=== PATIENT | female | born 1980 | race Caucasian/White ===

== ENCOUNTER 2018-04-15 14:20 | Observation (INO) | payer BC ==
[2018-04-15] MEDS ORDERED: Dicyclomine 10 MG Cap PO ONE (15:53)
[2018-04-15] MEDS ORDERED: Ondansetron 4 MG/2 ML SDV IV ONE (15:53)
[2018-04-15] MEDS ORDERED: Iopamidol 612 MG/ML 75 ML Bottle IVPUSH ONE (15:54)
[2018-04-15 15:59] LABS: ANION GAP 16.7; CHLORIDE,CL 106 mmol/L (101-111); SODIUM,NA 136 mmol/L (135-145)
--- NOTE | 2018-04-15 16:41 | EDM.PDOC ---
ED HPI GENERAL MEDICAL PROBLEM - General Chief Complaint: Abdominal Pain Stated Complaint: BAD STOMACH PAINS Time Seen by Provider: 04/15/18 15:46 Source of Information: Reports: Patient, RN, RN Notes Reviewed History Limitations: Reports: No Limitations - History of Present Illness INITIAL COMMENTS - FREE TEXT/NARRATIVE: Patient presents to ER with complaint of abdominal pain which began at 06:00. He has spasms that come and go to the right shoulder blade, right upper quadrant and into his back he has piercing pain. He has had vomiting, diarrhea, hot flash and sweating. No chest pain, shortness of breath and fever. Onset: Today Duration: Getting Worse Location: Reports: Abdomen Quality: Reports: Ache Severity: Moderate Improves with: Reports: None Worsens with: Reports: None Associated Symptoms: Reports: No Other Symptoms Right Abdomen Pain Score (Numeric/FACES): 3 - Related Data Allergies Allergy/AdvReac Type Severity Reaction Status Date / Time No Known Allergies Allergy Verified 04/15/18 14:42 Home Meds: Home Meds FLUoxetine [PROzac] 20 mg PO DAILY 03/15/13 [History] Past Medical History HEENT History: Reports: Impaired Vision Other HEENT History: wears glasses Cardiovascular History: Reports: None Respiratory History: Reports: None Gastrointestinal History: Reports: Other (See Below) Other Gastrointestinal History: belly problems whole life, cant figure out, states has had ulcers Genitourinary History: Reports: None 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 Musculoskeletal History: Reports: None Neurological History: Reports: None Psychiatric History: Reports: Anxiety Endocrine/Metabolic History: Reports: None Hematologic History: Reports: Anemia Immunologic History: Reports: None Oncologic (Cancer) History: Reports: None Dermatologic History: Reports: None - Infectious Disease History Infectious Disease History: Reports: Chicken Pox - Past Surgical History Head Surgeries/Procedures: Reports: None GI Surgical History: Reports: Colonoscopy Female Surgical History: Reports: Breast Reduction Neurological Surgical History: Reports: Discectomy, Laminectomy Musculoskeletal Surgical History: Reports: Other (See Below) Other Musculoskeletal Surgeries/Procedures:: disk surgurys Social & Family History - Tobacco Use Smoking Status *Q: Never Smoker Second Hand Smoke Exposure: No - Caffeine Use Caffeine Use: Reports: None - Recreational Drug Use Recreational Drug Use: No ED ROS GENERAL - Review of Systems Review Of Systems: ROS reveals no pertinent complaints other than HPI. ED EXAM, GI/ABD - Physical Exam Exam: See Below Exam Limited By: No Limitations General Appearance: Anxious, Moderate Distress Eyes: Bilateral: Normal Appearance Ears: Normal External Exam, Normal Canal, Hearing Grossly Normal, Normal TMs Nose: Normal Inspection, Normal Mucosa, No Blood Throat/Mouth: Normal Inspection, Normal Lips, Normal Teeth, Normal Gums, Normal Oropharynx, Normal Voice, No Airway Compromise Head: Atraumatic, Normocephalic Neck: Normal Inspection, Supple, Non-Tender, Full Range of Motion Respiratory/Chest: No Respiratory Distress, Lungs Clear, Normal Breath Sounds, No Accessory Muscle Use, Chest Non-Tender Cardiovascular: Normal Peripheral Pulses, Regular Rate, Rhythm, No Edema, No Gallop, No JVD, No Murmur, No Rub GI/Abdominal Exam: Tender, Other (generally hyperactive) (Female) Exam: Deferred Rectal (Female) Exam: Deferred Back Exam: Normal Inspection, Full Range of Motion, NT Extremities: Normal Inspection, Normal Range of Motion, Non-Tender, Normal Capillary Refill, No Pedal Edema Neurological: Alert, Oriented, CN II-XII Intact, Normal Cognition, Normal Gait, Normal Reflexes, No Motor/Sensory Deficits Psychiatric: Anxious, Tearful Skin Exam: Warm, Dry, Intact, Normal Color, No Rash Lymphatic: No Adenopathy Course - Vital Signs Last Recorded V/S: Last Vital Signs Temp 99.9 F 04/15/18 17:22 Pulse 74 04/15/18 17:22 Resp 16 04/15/18 17:22 BP 96/53 L 04/15/18 17:22 Pulse Ox 100 04/15/18 17:22 - Orders/Labs/Meds Orders: Active Orders 24 hr Category Date Time Status Sodium Chloride 0.9% [Normal Saline] 1,000 ml Med 04/15/18 17:16 Active IV .BOLUS Medication Orders Sodium Chloride (Normal Saline) 1,000 mls @ 999 mls/hr IV .BOLUS ONE Stop: 04/15/18 18:16 Last Admin: 04/15/18 17:21 Dose: 999 mls/hr Labs: Laboratory Tests 04/15/18 04/15/18 04/15/18 Range/Units 15:32 15:32 15:41 WBC 12.0 H (5.0-10.0) 10^3/uL RBC 4.88 (4.2-5.4) 10^6/uL Hgb 12.8 (12.0-16.0) g/dL Hct 38.8 (37.0-47.0) % MCV 79.5 L (80-100) fL MCH 26.2 L (27.0-34.0) pg MCHC 33.0 (33.0-35.0) g/dL Plt Count 270 (150-450) 10^3/uL Neut % (Auto) 88.9 H (42.2-75.2) % Lymph % (Auto) 5.4 L (20.5-50.1) % Frio % (Auto) 5.5 (2-8) % Eos % (Auto) 0.1 L (1.0-3.0) % Baso % (Auto) 0.1 (0.0-1.0) % Sodium 136 (135-145) mmol/L Potassium 3.7 (3.6-5.0) mmol/L Chloride 106 (101-111) mmol/L Carbon Dioxide 17.0 L (21.0-31.0) mmol/L Anion Gap 16.7 BUN 11 (7-18) mg/dL Creatinine 0.8 (0.6-1.3) mg/dL Est Cr Clr Drug Dosing 97.13 mL/min Estimated GFR (MDRD) > 60 BUN/Creatinine Ratio 13.75 Glucose 94 (74-105) mg/dL Calcium 9.3 (8.4-10.2) mg/dl Total Bilirubin 1.4 H (0.2-1.0) mg/dL AST 29 (10-42) IU/L ALT 13 (10-60) IU/L Alkaline Phosphatase 79 (42-121) IU/L Total Protein 7.7 (6.7-8.2) g/dl Albumin 4.4 (3.2-5.5) g/dl Globulin 3.3 Albumin/Globulin Ratio 1.33 Amylase 46 (28-100) U/L Lipase 31 (22-51) U/L Urine Color Yellow (YELLOW) Urine Appearance Slightly cloudy (CLEAR) Urine pH >= 9.0 (5.0-9.0) Ur Specific [place] 1.020 (1.005-1.030) Urine Protein 100 H (NEGATIVE) Urine Glucose (UA) Negative (NEGATIVE) Urine Ketones 80 H (NEGATIVE) Urine Occult Blood Trace-intact H (NEGATIVE) Urine Nitrite Negative (NEGATIVE) Urine Bilirubin Negative (NEGATIVE) Urine Urobilinogen 1.0 (0.2-1.0) mg/dL Ur Leukocyte Esterase Negative (NEGATIVE) Urine RBC 5-10 H /HPF Urine WBC 0-5 (0-5/HPF) /HPF Ur Epithelial Cells Moderate H /HPF Urine Bacteria Rare (0-FEW/HPF) /HPF Urine Mucus Many H /LPF Meds: Medications Generic Name Dose Route Start Last Admin Trade Name Freq PRN Reason Stop Dose Admin Sodium Chloride 1,000 mls @ 999 mls/hr 04/15/18 17:16 04/15/18 17:21 Normal Saline IV 04/15/18 18:16 999 mls/hr .BOLUS ONE Administration Discontinued Medications Generic Name Dose Route Start Last Admin Trade Name Freq PRN Reason Stop Dose Admin Dicyclomine HCl 20 mg 04/15/18 15:53 04/15/18 16:04 Bentyl PO 04/15/18 15:54 20 mg ONETIME ONE Administration Iopamidol 75 ml 04/15/18 15:54 04/15/18 16:15 Isovue-300 (61%) IVPUSH 04/15/18 15:55 75 ml ONETIME ONE Administration Ondansetron HCl 4 mg 04/15/18 15:53 04/15/18 16:02 Zofran IV 04/15/18 15:54 4 mg ONETIME ONE Administration - Radiology Interpretation Free Text/Narrative:: Abdominal/Pelvis CT with contrast: FINDINGS: Lower thorax: The visualized portions of the lung bases are normal. The heart is not enlarged. ABDOMEN: Liver: The liver is normal. Gallbladder and bile ducts: Normal. No calcified stones. No ductal dilation. Pancreas: The pancreas is normal. Spleen: The spleen is normal. Adrenals: The adrenal glands are normal. Kidneys and ureters: The kidneys are normal. Stomach and bowel: A large amount of fluid is noted within the colon with small air-fluid levels consistent with ileus. Appendix: The appendix measures upper limits of normal at 7 mm. No surrounding periappendiceal fat stranding. PELVIS: Bladder: The bladder is normal. Reproductive: The uterus is normal. ABDOMEN and PELVIS: Intraperitoneal space: Normal. No free air. No significant fluid collection. Bones/joints: No acute fracture. No dislocation. Soft tissues: Unremarkable. Vasculature: Normal. No abdominal aortic aneurysm. Lymph nodes: Normal. No enlarged lymph nodes. IMPRESSION: 1. A large amount of fluid is noted within the colon with small air-fluid levels consistent with ileus. 2. The appendix measures upper limits of normal at 7 mm. No surrounding periappendiceal fat stranding. If symptoms persist, recommend followup study following IV and oral contrast. Thank you for allowing us to participate in the care of your patient. Dictated and Authenticated by: Brayan Blum DO 04/15/2018 5:07 PM Central Time ([place] & [place]) See rad report - Re-Assessments/Exams Free Text/Narrative Re-Assessment/Exam: 04/15/18 18:10 Discussed the patient case with Dr. Blair who agreed to accept the patient for admission under observation. Departure - Departure Time of Disposition: 18:11 Disposition: Refer to Observation Condition: Fair Clinical Impression: Ileus Diarrhea Qualifiers: Diarrhea type: unspecified type Qualified Code(s): R19.7 - Diarrhea, unspecified Abdominal pain Qualifiers: Abdominal location: generalized Qualified Code(s): R10.84 - Generalized abdominal pain - Discharge Information *PRESCRIPTION DRUG MONITORING PROGRAM REVIEWED*: No *COPY OF PRESCRIPTION DRUG MONITORING REPORT IN PATIENT MAURY: No Forms: ED Department Discharge - My Orders Last 24 Hours: My Active Orders 04/15/18 17:16 Sodium Chloride 0.9% [Normal Saline] 1,000 ml IV .BOLUS - Assessment/Plan Last 24 Hours: My Active Orders 04/15/18 17:16 Sodium Chloride 0.9% [Normal Saline] 1,000 ml IV .BOLUS
[2018-04-15] MEDS ORDERED: Sodium Chloride 0.9% 1,000 ML IV ONE (17:16)
[2018-04-15] MEDS ORDERED: Docusate Sodium 100 MG Cap PO PRN (19:28)
[2018-04-15] MEDS ORDERED: Promethazine 25 MG/ML SDV IM PRN (19:28)
[2018-04-15] MEDS ORDERED: Bisacodyl 5 MG Tab PO PRN (19:28)
[2018-04-15] MEDS ORDERED: Ibuprofen 600 MG Tab PO PRN (19:28)
[2018-04-15] MEDS ORDERED: Polyethylene Glycol 3350 Powder 17 GM Packet PO PRN (19:28)
[2018-04-15] MEDS ORDERED: Magnesium Hydroxide 400 MG/5 ML Susp 30 ML Cup PO PRN (19:28)
[2018-04-15] MEDS ORDERED: Acetaminophen 325 MG Tab PO PRN (19:28)
[2018-04-15] MEDS ORDERED: Ondansetron 4 MG/2 ML SDV IVPUSH PRN (19:28)
[2018-04-15] MEDS ORDERED: Promethazine 25 MG Tab PO PRN (19:28)
[2018-04-15] MEDS ORDERED: Ondansetron 4 MG Tab.DIS PO PRN (19:28)
--- NOTE | 2018-04-15 19:35 | PCM.HP ---
H&P History of Present Illness - General Date of Service: 04/15/18 Admit Problem/Dx: Admission Diagnosis/Problem Admission Diagnosis/Problem Ileus Source of Information: Patient, Provider History Limitations: Reports: No Limitations - History of Present Illness Initial Comments - Free Text/Narative: Ms. Smalls is a 38 y.o female with history of herniated discs who presented to the ED with complaints of abdominal pain, nausea/vomiting and diarrhea and was found to have ileus on CT abdomen and pelvis. She reports that she woke up this morning around 6 a.m with abdominal pain that started in the right upper quadrant below the ribs. she reports pain would come in waves, 8/10, lasts about 30 seconds, radiate to the right shoulder, right upper abdomen, and her back, and subside spontaneously. She reports that she was in the bathroom for diarrhea "about 40x." She denies hematochezia or melena. No abdominal trauma. Reports she had dry heaving and hyperventilation. Had an episode of NBNB emesis. She denies prior episodes. She reports chills but did not check her temperature. Denies diaphoresis. She denies chest pain, shortness of breath, dysuria, hematuria, or any other symptoms. Right Abdomen Pain Score (Numeric/FACES): 4 Left Posterior Hip Pain Score (Numeric/FACES): 4 - Related Data Allergies/Adverse Reactions: Allergies Allergy/AdvReac Type Severity Reaction Status Date / Time No Known Allergies Allergy Verified 04/15/18 19:12 Home Medications: Home Meds FLUoxetine [PROzac] 20 mg PO DAILY 03/15/13 [History] Past Medical History HEENT History: Reports: Impaired Vision, Other (See Below) Other HEENT History: wears glasses, strabismus Cardiovascular History: Reports: None Respiratory History: Reports: None Gastrointestinal History: Reports: Other (See Below) Other Gastrointestinal History: belly problems whole life, cant figure out, states has had ulcers Genitourinary History: Reports: None 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 Musculoskeletal History: Reports: None Neurological History: Reports: None Psychiatric History: Reports: Anxiety Endocrine/Metabolic History: Reports: None Hematologic History: Reports: Anemia Immunologic History: Reports: None Oncologic (Cancer) History: Reports: None Dermatologic History: Reports: None - Infectious Disease History Infectious Disease History: Reports: Chicken Pox - Past Surgical History Head Surgeries/Procedures: Reports: None HEENT Surgical History: Reports: Eye Surgery GI Surgical History: Reports: Colonoscopy Female Surgical History: Reports: Breast Reduction Neurological Surgical History: Reports: Discectomy, Laminectomy Musculoskeletal Surgical History: Reports: Other (See Below) Other Musculoskeletal Surgeries/Procedures:: disk surguries Social & Family History - Family History Family Medical History: Noncontributory - Tobacco Use Smoking Status *Q: Never Smoker Second Hand Smoke Exposure: No - Caffeine Use Caffeine Use: Reports: Other Other Caffeine Use: Plexus - Recreational Drug Use Recreational Drug Use: No H&P Review of Systems - Review of Systems: Review Of Systems: ROS reveals no pertinent complaints other than HPI. Exam - Exam Exam: See Below - Vital Signs Vital Signs: Last Vital Signs Temp 99.0 F 04/15/18 19:26 Pulse 84 04/15/18 19:26 Resp 16 04/15/18 19:26 BP 89/37 L 04/15/18 19:26 Pulse Ox 98 04/15/18 19:26 Weight: 160 lb - Exam Physical Exam Comments:: General: Alert and oriented to place, time and person Head: atraumatic and normocephalic. Eyes: PERRLA, EOMI, anicteric, Ear, Nose and Throat: No gross abnormality found Neck: Supple Respiratory/Chest: CTAB, no wheezes, crackles, rales, or rhonchi; Good air entry bilaterally. No increased work of breathing CVS: RRR, no murmur, rub, or gallop, peripheral pulses palpable. Gastrointestinal/Abd: +RUQ tenderness with positive Argueta's sign. Soft, non- distended, non-tender. Normal bowel sounds. No organomegaly. Skin: No acute rashes noted. Neuro: Grossly non-focal. No cranial nerve abnormality. Moves all extremities. Psych: Alert and oriented to place time and person. No hallucinations or delusions noted. Musculoskeletal: No abnormality noted. Ext: No edema, no ulcers, no tenderness, no size differences, - Patient Data Lab Results Last 24 hrs: Laboratory Results - last 24 hr 04/15/18 04/15/18 04/15/18 Range/Units 15:32 15:32 15:41 WBC 12.0 H (5.0-10.0) 10^3/uL RBC 4.88 (4.2-5.4) 10^6/uL Hgb 12.8 (12.0-16.0) g/dL Hct 38.8 (37.0-47.0) % MCV 79.5 L (80-100) fL MCH 26.2 L (27.0-34.0) pg MCHC 33.0 (33.0-35.0) g/dL Plt Count 270 (150-450) 10^3/uL Neut % (Auto) 88.9 H (42.2-75.2) % Lymph % (Auto) 5.4 L (20.5-50.1) % Harmon % (Auto) 5.5 (2-8) % Eos % (Auto) 0.1 L (1.0-3.0) % Baso % (Auto) 0.1 (0.0-1.0) % Sodium 136 (135-145) mmol/L Potassium 3.7 (3.6-5.0) mmol/L Chloride 106 (101-111) mmol/L Carbon Dioxide 17.0 L (21.0-31.0) mmol/L Anion Gap 16.7 BUN 11 (7-18) mg/dL Creatinine 0.8 (0.6-1.3) mg/dL Est Cr Clr Drug Dosing 97.13 mL/min Estimated GFR (MDRD) > 60 BUN/Creatinine Ratio 13.75 Glucose 94 (74-105) mg/dL Calcium 9.3 (8.4-10.2) mg/dl Total Bilirubin 1.4 H (0.2-1.0) mg/dL AST 29 (10-42) IU/L ALT 13 (10-60) IU/L Alkaline Phosphatase 79 (42-121) IU/L Total Protein 7.7 (6.7-8.2) g/dl Albumin 4.4 (3.2-5.5) g/dl Globulin 3.3 Albumin/Globulin Ratio 1.33 Amylase 46 (28-100) U/L Lipase 31 (22-51) U/L Urine Color Yellow (YELLOW) Urine Appearance Slightly cloudy (CLEAR) Urine pH >= 9.0 (5.0-9.0) Ur Specific [place] 1.020 (1.005-1.030) Urine Protein 100 H (NEGATIVE) Urine Glucose (UA) Negative (NEGATIVE) Urine Ketones 80 H (NEGATIVE) Urine Occult Blood Trace-intact H (NEGATIVE) Urine Nitrite Negative (NEGATIVE) Urine Bilirubin Negative (NEGATIVE) Urine Urobilinogen 1.0 (0.2-1.0) mg/dL Ur Leukocyte Esterase Negative (NEGATIVE) Urine RBC 5-10 H /HPF Urine WBC 0-5 (0-5/HPF) /HPF Ur Epithelial Cells Moderate H /HPF Urine Bacteria Rare (0-FEW/HPF) /HPF Urine Mucus Many H /LPF Result Diagrams: 04/15/18 15:32 04/15/18 15:32 - Problem List (1) Anxiety SNOMED Code(s): 91442753 ICD Code: F41.9 - ANXIETY DISORDER, UNSPECIFIED Status: Acute Current Visit: Yes (2) Abdominal pain SNOMED Code(s): 18181096 ICD Code: R10.9 - UNSPECIFIED ABDOMINAL PAIN Status: Acute Current Visit : Yes Qualifiers: Abdominal location: right upper quadrant Qualified Code(s): R10.11 - Right upper quadrant pain (3) Diarrhea SNOMED Code(s): 48793964 ICD Code: R19.7 - DIARRHEA, UNSPECIFIED Status: Acute Current Visit: No Qualifiers: Diarrhea type: unspecified type Qualified Code(s): R19.7 - Diarrhea, unspecified (4) Ileus SNOMED Code(s): 226745796 ICD Code: K56.7 - ILEUS, UNSPECIFIED Status: Acute Priority: High Current Visit: Yes Problem List Initiated/Reviewed/Updated: Yes Orders Last 24hrs: Active Orders 24 hr Category Date Time Status Patient Status [ADT] Routine ADT 04/15/18 19:28 Ordered Height and Weight [RC] UPON Care 04/15/18 19:28 Ordered Intake and Output [RC] QSHIFT Care 04/15/18 19:29 Ordered Oxygen Therapy [RC] PRN Care 04/15/18 19:28 Ordered Up ad Hilary [RC] ASDIRECTED Care 04/15/18 19:28 Ordered VTE/DVT Education [RC] PER UNIT ROUTINE Care 04/15/18 19:28 Ordered Vital Signs [RC] Q4H Care 04/15/18 19:28 Ordered Nothing per Oral Now Diet [DIET] Diet 04/15/18 Dinner Ordered CBC W/O DIFF,HEMOGRAM [HEME] AM Lab 04/16/18 05:11 Ordered COMPREHENSIVE METABOLIC PN,CMP [CHEM] AM Lab 04/16/18 05:11 Ordered Acetaminophen [Tylenol] Med 04/15/18 19:28 Ordered 650 mg PO Q4H PRN Bisacodyl [Dulcolax] Med 04/15/18 19:28 Ordered 5 mg PO DAILY PRN Docusate Sodium [Colace] Med 04/15/18 19:28 Ordered 100 mg PO BID PRN Docusate Sodium/Sennosides [Senna Plus] Med 04/15/18 19:28 Ordered 1 tab PO BEDTIME PRN Enoxaparin [Lovenox] Med 04/16/18 09:00 Ordered 40 mg SUBCUT DAILY Ibuprofen [Motrin] Med 04/15/18 19:28 Ordered 600 mg PO Q6H PRN Lactated Ringers @ 125 MLS/HR(1000ml) Med 04/15/18 19:30 Ordered Lactated Ringers [Ringers, Lactated] 1,000 ml IV ASDIRECTED Magnesium Hydroxide [Milk of Magnesia] Med 04/15/18 19:28 Ordered 30 ml PO Q12H PRN Ondansetron [Zofran ODT] Med 04/15/18 19:28 Ordered 4 mg PO Q6H PRN Ondansetron [Zofran] Med 04/15/18 19:28 Ordered 4 mg IVPUSH Q6H PRN Polyethylene Glycol 3350 [MiraLAX] Med 04/15/18 19:28 Ordered 17 gm PO DAILY PRN Promethazine [Phenergan] Med 04/15/18 19:28 Ordered 25 mg PO Q6H PRN Promethazine [Phenergan] Med 04/15/18 19:28 Ordered 6.25 mg IM Q6H PRN Nasogastric Orogastric Tube Insertion [OM.PC] Urgent Oth 04/15/18 19:29 Ordered Resuscitation Status Routine Resus Stat 04/15/18 19:28 Ordered Assessment/Plan Comment:: #Ileus + abdominal spasms: patient with CT findings of ileus in the context of abdominal pain and diarrhea with one episode of emesis. - NPO - IVF - NGT placement if nausea and/or emesis recurs. - Monitor labs. - Pain management - Serial abdominal exams - Encouraged ambulation - Ice chips, small quantities please. - Bentyl, if abdominal spasms recurs. #RUQ pain:+RUQ tenderness with positive Argueta's sign. CT scan does not show any gall stones or ductal dilatation. However, symptoms, physical exam findings are concerning for probable cholycystitis. Only thing does not fit is her relatively normal LFTs. - I will obtain RUQ US if RUQ tenderness persists in the morning. # Anxiety: - Continue prozac. DVT PPx: Lovenox Full Code
[2018-04-15] MEDS: Lactated Ringers 1,000 ML IV SCH (20:16)
[2018-04-16] MEDS: Lactated Ringers 1,000 ML IV SCH ×3 (04:24→20:41)
[2018-04-16 06:37] LABS: ANION GAP 9.4; CHLORIDE,CL 109 mmol/L (101-111); SODIUM,NA 138 mmol/L (135-145)
[2018-04-16] MEDS: Enoxaparin 40 MG/0.4 ML Syringe SUBCUT SCH (08:29)
[2018-04-16] MEDS ORDERED: Potassium Chloride 10 MEQ Tab.ER PO ONE (08:59)
[2018-04-16] MEDS ORDERED: Cyclobenzaprine 10 MG Tab PO ONE (10:14)
--- NOTE | 2018-04-16 10:18 | PCM.PN ---
- General Info Date of Service: 04/16/18 Admission Dx/Problem (Free Text): Admission Diagnosis/Problem Admission Diagnosis/Problem Ileus Subjective Update: Reports that she had a fever last night. Feeling back pain. Reports that she has been having diarrhea since she came to the hospital. Denies abdominal pain. No recurrence of nausea/vomiting. She denies fevers, chills, chest pain, shortness of breath or any other symptoms. - Review of Systems Systems Review Comment:: As per subjective update above. - Patient Data Vitals - Most Recent: Last Vital Signs Temp 98.3 F 04/16/18 08:00 Pulse 77 04/16/18 08:00 Resp 16 04/16/18 08:00 BP 98/58 L 04/16/18 08:00 Pulse Ox 100 04/16/18 08:00 Weight - Most Recent: 160 lb I&O - Last 24 Hours: Intake & Output 04/15/18 04/16/18 04/16/18 22:59 06:59 14:59 Intake Total 993 Balance 993 Lab Results Last 24 Hours: Laboratory Results - last 24 hr 04/15/18 04/15/18 04/15/18 Range/Units 15:32 15:32 15:41 WBC 12.0 H (5.0-10.0) 10^3/uL RBC 4.88 (4.2-5.4) 10^6/uL Hgb 12.8 (12.0-16.0) g/dL Hct 38.8 (37.0-47.0) % MCV 79.5 L (80-100) fL MCH 26.2 L (27.0-34.0) pg MCHC 33.0 (33.0-35.0) g/dL Plt Count 270 (150-450) 10^3/uL Neut % (Auto) 88.9 H (42.2-75.2) % Lymph % (Auto) 5.4 L (20.5-50.1) % Bay % (Auto) 5.5 (2-8) % Eos % (Auto) 0.1 L (1.0-3.0) % Baso % (Auto) 0.1 (0.0-1.0) % Sodium 136 (135-145) mmol/L Potassium 3.7 (3.6-5.0) mmol/L Chloride 106 (101-111) mmol/L Carbon Dioxide 17.0 L (21.0-31.0) mmol/L Anion Gap 16.7 BUN 11 (7-18) mg/dL Creatinine 0.8 (0.6-1.3) mg/dL Est Cr Clr Drug Dosing 97.13 mL/min Estimated GFR (MDRD) > 60 BUN/Creatinine Ratio 13.75 Glucose 94 (74-105) mg/dL Calcium 9.3 (8.4-10.2) mg/dl Total Bilirubin 1.4 H (0.2-1.0) mg/dL AST 29 (10-42) IU/L ALT 13 (10-60) IU/L Alkaline Phosphatase 79 (42-121) IU/L Total Protein 7.7 (6.7-8.2) g/dl Albumin 4.4 (3.2-5.5) g/dl Globulin 3.3 Albumin/Globulin Ratio 1.33 Amylase 46 (28-100) U/L Lipase 31 (22-51) U/L Urine Color Yellow (YELLOW) Urine Appearance Slightly cloudy (CLEAR) Urine pH >= 9.0 (5.0-9.0) Ur Specific [place] 1.020 (1.005-1.030) Urine Protein 100 H (NEGATIVE) Urine Glucose (UA) Negative (NEGATIVE) Urine Ketones 80 H (NEGATIVE) Urine Occult Blood Trace-intact H (NEGATIVE) Urine Nitrite Negative (NEGATIVE) Urine Bilirubin Negative (NEGATIVE) Urine Urobilinogen 1.0 (0.2-1.0) mg/dL Ur Leukocyte Esterase Negative (NEGATIVE) Urine RBC 5-10 H /HPF Urine WBC 0-5 (0-5/HPF) /HPF Ur Epithelial Cells Moderate H /HPF Urine Bacteria Rare (0-FEW/HPF) /HPF Urine Mucus Many H /LPF 04/16/18 04/16/18 Range/Units 06:05 06:05 WBC 5.2 (5.0-10.0) 10^3/uL RBC 3.94 L (4.2-5.4) 10^6/uL Hgb 10.2 L D (12.0-16.0) g/dL Hct 32.8 L (37.0-47.0) % MCV 83.2 D (80-100) fL MCH 25.9 L (27.0-34.0) pg MCHC 31.1 L (33.0-35.0) g/dL Plt Count 199 (150-450) 10^3/uL Neut % (Auto) (42.2-75.2) % Lymph % (Auto) (20.5-50.1) % [place] % (Auto) (2-8) % Eos % (Auto) (1.0-3.0) % Baso % (Auto) (0.0-1.0) % Sodium 138 (135-145) mmol/L Potassium 3.4 L (3.6-5.0) mmol/L Chloride 109 (101-111) mmol/L Carbon Dioxide 23.0 (21.0-31.0) mmol/L Anion Gap 9.4 BUN 10 (7-18) mg/dL Creatinine 0.8 (0.6-1.3) mg/dL Est Cr Clr Drug Dosing 97.13 mL/min Estimated GFR (MDRD) > 60 BUN/Creatinine Ratio 12.50 Glucose 95 (74-105) mg/dL Calcium 8.1 L (8.4-10.2) mg/dl Total Bilirubin 0.8 (0.2-1.0) mg/dL AST 16 (10-42) IU/L ALT 10 (10-60) IU/L Alkaline Phosphatase 61 (42-121) IU/L Total Protein 5.8 L (6.7-8.2) g/dl Albumin 3.2 (3.2-5.5) g/dl Globulin 2.6 Albumin/Globulin Ratio 1.23 Amylase (28-100) U/L Lipase (22-51) U/L Urine Color (YELLOW) Urine Appearance (CLEAR) Urine pH (5.0-9.0) Ur Specific [place] (1.005-1.030) Urine Protein (NEGATIVE) Urine Glucose (UA) (NEGATIVE) Urine Ketones (NEGATIVE) Urine Occult Blood (NEGATIVE) Urine Nitrite (NEGATIVE) Urine Bilirubin (NEGATIVE) Urine Urobilinogen (0.2-1.0) mg/dL Ur Leukocyte Esterase (NEGATIVE) Urine RBC /HPF Urine WBC (0-5/HPF) /HPF Ur Epithelial Cells /HPF Urine Bacteria (0-FEW/HPF) /HPF Urine Mucus /LPF Med Orders - Current: Current Medications Acetaminophen (Tylenol) 650 mg PO Q4H PRN PRN Reason: Pain Bisacodyl (Dulcolax) 5 mg PO DAILY PRN PRN Reason: Constipation Cyclobenzaprine HCl (Flexeril) 10 mg PO ONETIME ONE Stop: 04/16/18 10:15 Dicyclomine HCl (Bentyl) 10 mg PO QIDACANDBED PRN PRN Reason: Abdominal Pain Docusate Sodium (Colace) 100 mg PO BID PRN PRN Reason: Constipation Enoxaparin Sodium (Lovenox) 40 mg SUBCUT DAILY [facility] Last Admin: 04/16/18 08:29 Dose: 40 mg Lactated Ringer's (Ringers, Lactated) 1,000 mls @ 125 mls/hr IV ASDIRECTED [facility] Last Admin: 04/16/18 04:24 Dose: 125 mls/hr Ibuprofen (Motrin) 600 mg PO Q6H PRN PRN Reason: Pain Last Admin: 04/15/18 20:16 Dose: 600 mg Magnesium Hydroxide (Milk Of Magnesia) 30 ml PO Q12H PRN PRN Reason: Constipation Ondansetron HCl (Zofran Odt) 4 mg PO Q6H PRN PRN Reason: nausea, able to take PO Ondansetron HCl (Zofran) 4 mg IVPUSH Q6H PRN PRN Reason: Nausea/Vomiting Polyethylene Glycol (Miralax) 17 gm PO DAILY PRN PRN Reason: Constipation Promethazine HCl (Phenergan) 25 mg PO Q6H PRN PRN Reason: nausea, able to take PO Promethazine HCl (Phenergan) 6.25 mg IM Q6H PRN PRN Reason: Nausea/Vomiting Senna/Docusate Sodium (Senna Plus) 1 tab PO BEDTIME PRN PRN Reason: Constipation Discontinued Medications Dicyclomine HCl (Bentyl) 20 mg PO ONETIME ONE Stop: 04/15/18 15:54 Last Admin: 04/15/18 16:04 Dose: 20 mg Sodium Chloride (Normal Saline) 1,000 mls @ 999 mls/hr IV .BOLUS ONE Stop: 04/15/18 18:16 Last Admin: 04/15/18 17:21 Dose: 999 mls/hr Iopamidol (Isovue-300 (61%)) 75 ml IVPUSH ONETIME ONE Stop: 04/15/18 15:55 Last Admin: 04/15/18 16:15 Dose: 75 ml Ondansetron HCl (Zofran) 4 mg IV ONETIME ONE Stop: 04/15/18 15:54 Last Admin: 04/15/18 16:02 Dose: 4 mg Potassium Chloride (Klor-Con 10) 40 meq PO ONETIME ONE Stop: 04/16/18 09:00 - Exam General: Alert, Oriented HEENT: Pupils Equal, Pupils Reactive, Mucous Membr. Moist/[place] Neck: Supple Lungs: Clear to Auscultation, Normal Respiratory Effort Cardiovascular: Regular Rate, Regular Rhythm GI/Abdominal Exam: Normal Bowel Sounds, Soft, Non-Tender, No Distention Back Exam: Normal Inspection, Paraspinal Tenderness Extremities: Normal Inspection, Normal Range of Motion, Non-Tender, No Pedal Edema Peripheral Pulses: 2+: Radial (L), Radial (R), Dorsalis Pedis (L), Dorsalis Pedis (R) Skin: Warm, Dry, Intact Neurological: No New Focal Deficit Psy/Mental Status: Alert, Normal Affect, Normal Mood - Problem List & Annotations (1) Anxiety SNOMED Code(s): 25090133 Code(s): F41.9 - ANXIETY DISORDER, UNSPECIFIED Status: Acute Current Visit: Yes (2) Abdominal pain SNOMED Code(s): 93240262 Code(s): R10.9 - UNSPECIFIED ABDOMINAL PAIN Status: Acute Current Visit: Yes Qualifiers: Abdominal location: right upper quadrant Qualified Code(s): R10.11 - Right upper quadrant pain (3) Diarrhea SNOMED Code(s): 16183029 Code(s): R19.7 - DIARRHEA, UNSPECIFIED Status: Acute Current Visit: No Qualifiers: Diarrhea type: unspecified type Qualified Code(s): R19.7 - Diarrhea, unspecified (4) Ileus SNOMED Code(s): 761625953 Code(s): K56.7 - ILEUS, UNSPECIFIED Status: Acute Priority: High Current Visit: Yes - Problem List Review Problem List Initiated/Reviewed/Updated: Yes - My Orders Last 24 Hours: My Active Orders 04/15/18 19:28 Patient Status [ADT] Routine Oxygen Therapy [RC] PRN Up ad Hilary [RC] ASDIRECTED VTE/DVT Education [RC] PER UNIT ROUTINE Vital Signs [RC] 04,08,12,16,20 Acetaminophen [Tylenol] 650 mg PO Q4H PRN Bisacodyl [Dulcolax] 5 mg PO DAILY PRN Docusate Sodium [Colace] 100 mg PO BID PRN Docusate Sodium/Sennosides [Senna Plus] 1 tab PO BEDTIME PRN Ibuprofen [Motrin] 600 mg PO Q6H PRN Magnesium Hydroxide [Milk of Magnesia] 30 ml PO Q12H PRN Ondansetron [Zofran ODT] 4 mg PO Q6H PRN Ondansetron [Zofran] 4 mg IVPUSH Q6H PRN Polyethylene Glycol 3350 [MiraLAX] 17 gm PO DAILY PRN Promethazine [Phenergan] 25 mg PO Q6H PRN Promethazine [Phenergan] 6.25 mg IM Q6H PRN Resuscitation Status Routine 04/15/18 19:29 Intake and Output [RC] QSHIFT Nasogastric Orogastric Tube Insertion [OM.PC] Urgent 04/15/18 19:30 Lactated Ringers [Ringers, Lactated] 1,000 ml IV ASDIRECTED 04/15/18 19:50 Dicyclomine [Bentyl] 10 mg PO QIDACANDBED PRN 04/15/18 22:39 Communication Order [RC] PRN 04/15/18 Dinner Nothing per Oral Now Diet [DIET] 04/16/18 09:00 Enoxaparin [Lovenox] 40 mg SUBCUT DAILY 04/16/18 10:10 C DIFFICILE TOXIN BY PCR [MREF] Urgent STOOL CULTURE/SHIGA TOXIN [MREF] Urgent 04/16/18 10:12 OVA & PARASITES BY IMMUNOASSAY [MREF] Routine 04/16/18 10:14 Cyclobenzaprine [Flexeril] 10 mg PO ONETIME ONE 04/16/18 10:15 FLUoxetine [PROzac] 20 mg PO DAILY - Plan Plan:: #Ileus + abdominal spasms: patient with CT findings of ileus in the context of abdominal pain and diarrhea with one episode of emesis. - NPO - IVF - NGT placement if nausea and/or emesis recurs. - Monitor labs. - Pain management - Serial abdominal exams - Encouraged ambulation - Ice chips, small quantities please. - Bentyl, if abdominal spasms recurs. #Diarrhea: patient reports multiple loose bowel movements prior to presentation , which has persisted since admission. Non-melenic, non-bloody. - Rule out C diff - Stool culture - Stool O/P. #RUQ pain:+RUQ tenderness with positive Argueta's sign. CT scan does not show any gall stones or ductal dilatation. However, symptoms, physical exam findings are concerning for probable cholycystitis. Only thing does not fit is her relatively normal LFTs. - I will obtain RUQ US if RUQ tenderness persists in the morning. # Anxiety: - Continue prozac. DVT PPx: Lovenox Full Code
[2018-04-16] MEDS: FLUoxetine 10 MG Cap PO SCH (11:17)
[2018-04-16] MEDS: Dicyclomine 10 MG Cap PO PRN (21:03)
[2018-04-17] MEDS: Lactated Ringers 1,000 ML IV SCH (05:09)
[2018-04-17] MEDS: Dicyclomine 10 MG Cap PO PRN (09:25)
[2018-04-17] MEDS: Enoxaparin 40 MG/0.4 ML Syringe SUBCUT SCH (09:25)
[2018-04-17] MEDS: FLUoxetine 10 MG Cap PO SCH (09:25)
[2018-04-17 11:50] VITALS: BP 95/65
--- NOTE | 2018-04-17 11:57 | PCM.DCSUM1 ---
Discharge Summary - Hospital Course Free Text/Narrative:: Patient was admitted for ileus after she presented to the ED with complaints of abdominal pain and diarrhea and was found to have ileus on CT scan. She had abdominal spasm in the ED which responded to bentyl. She was made NPO. She continued to have diarrhea. C diff was collected, but this is a send out lab so has yet to be resulted. Patient reported improvement of her abdominal pain. She tolerated diet, which was advanced to regular diet. She required intermittent doses of bentyl during this hospitalization. She reported that she has had these abdominal pain and diarrhea since she was a teenager. She last had a colonoscopy about 15 years ago. She was counselled to follow up with GI and to have repeat colonoscopy with biopsy to aid in diagnosis of her GI condition. She verbalized understanding and agreement. She is discharged to follow up with her PCP. She was given a script for 7 days supply of bentyl. Diagnosis: Stroke: No - Discharge Data Discharge Date: 04/17/18 Discharge Disposition: Home, Self-Care 01 Condition: Good - Discharge Diagnosis/Problem(s) (1) Anxiety SNOMED Code(s): 75217750 ICD Code: F41.9 - ANXIETY DISORDER, UNSPECIFIED Status: Acute Current Visit: Yes (2) Abdominal pain SNOMED Code(s): 57873380 ICD Code: R10.9 - UNSPECIFIED ABDOMINAL PAIN Status: Acute Current Visit : Yes Qualifiers: Abdominal location: right upper quadrant Qualified Code(s): R10.11 - Right upper quadrant pain (3) Diarrhea SNOMED Code(s): 98189087 ICD Code: R19.7 - DIARRHEA, UNSPECIFIED Status: Acute Current Visit: No Qualifiers: Diarrhea type: unspecified type Qualified Code(s): R19.7 - Diarrhea, unspecified (4) Ileus SNOMED Code(s): 137156328 ICD Code: K56.7 - ILEUS, UNSPECIFIED Status: Acute Priority: High Current Visit: Yes - Patient Instructions Diet: Regular Diet as Tolerated Driving: May Drive Today Showering/Bathing: May Shower Notify Provider of: Fever, Increased Pain - Discharge Plan *PRESCRIPTION DRUG MONITORING PROGRAM REVIEWED*: No *COPY OF PRESCRIPTION DRUG MONITORING REPORT IN PATIENT MAURY: No Prescriptions/Med Rec: Dicyclomine [Bentyl] 10 mg PO QIDACANDBED PRN 7 Days #20 cap PRN Reason: Abdominal Pain Home Medications: Home Meds FLUoxetine [PROzac] 20 mg PO DAILY 03/15/13 [History] Dicyclomine [Bentyl] 10 mg PO QIDACANDBED PRN 7 Days #20 cap 04/17/18 [Rx] Oxygen Therapy Mode: Room Air Patient Handouts: Dicyclomine tablets or capsules, Ileus, Irritable Bowel Syndrome, Adult Referrals: PCP,None [Primary Care Provider] - - Discharge Summary/Plan Comment DC Time >30 min.: Yes - General Info Admission Dx/Problem (Free Text: Admission Diagnosis/Problem Admission Diagnosis/Problem Ileus Subjective Update: Reports that she still has diarrhea. States that she has had intermittent abdominal pain and associated diarrhea for many years, since she was a teenager. Had colonoscopies in the past but they were unrevealing. Last colonoscopy was 15 years ago. Reports that her last episode of abdominal pain with diarrhea prior to this episode was 3 months ago. She denies fevers, chills , chest pain, shortness of breath or any other symptoms. She reports that she is tolerating regular diet and would like to go home with bentyl. - Patient Data Vitals - Most Recent: Last Vital Signs Temp 98.2 F 04/17/18 11:49 Pulse 76 04/17/18 11:49 Resp 18 04/17/18 11:49 BP 95/65 04/17/18 11:49 Pulse Ox 100 04/17/18 11:49 Weight - Most Recent: 160 lb I&O - Last 24 hours: Intake & Output 04/16/18 04/17/18 04/17/18 22:59 06:59 14:59 Intake Total 200 656 Balance 200 656 Med Orders - Current: Current Medications Acetaminophen (Tylenol) 650 mg PO Q4H PRN PRN Reason: Pain Last Admin: 04/16/18 11:18 Dose: 650 mg Bisacodyl (Dulcolax) 5 mg PO DAILY PRN PRN Reason: Constipation Dicyclomine HCl (Bentyl) 10 mg PO QIDACANDBED PRN PRN Reason: Abdominal Pain Last Admin: 04/17/18 09:25 Dose: 10 mg Docusate Sodium (Colace) 100 mg PO BID PRN PRN Reason: Constipation Enoxaparin Sodium (Lovenox) 40 mg SUBCUT DAILY [facility] Last Admin: 04/17/18 09:25 Dose: Not Given Fluoxetine HCl (Prozac) 20 mg PO DAILY [facility] Last Admin: 04/17/18 09:25 Dose: 20 mg Lactated Ringer's (Ringers, Lactated) 1,000 mls @ 125 mls/hr IV ASDIRECTED [facility] Last Infusion: 04/17/18 10:40 Dose: 0 mls/hr Ibuprofen (Motrin) 600 mg PO Q6H PRN PRN Reason: Pain Last Admin: 04/15/18 20:16 Dose: 600 mg Magnesium Hydroxide (Milk Of Magnesia) 30 ml PO Q12H PRN PRN Reason: Constipation Ondansetron HCl (Zofran Odt) 4 mg PO Q6H PRN PRN Reason: nausea, able to take PO Ondansetron HCl (Zofran) 4 mg IVPUSH Q6H PRN PRN Reason: Nausea/Vomiting Polyethylene Glycol (Miralax) 17 gm PO DAILY PRN PRN Reason: Constipation Promethazine HCl (Phenergan) 25 mg PO Q6H PRN PRN Reason: nausea, able to take PO Promethazine HCl (Phenergan) 6.25 mg IM Q6H PRN PRN Reason: Nausea/Vomiting Senna/Docusate Sodium (Senna Plus) 1 tab PO BEDTIME PRN PRN Reason: Constipation Discontinued Medications Cyclobenzaprine HCl (Flexeril) 10 mg PO ONETIME ONE Stop: 04/16/18 10:15 Last Admin: 04/16/18 11:18 Dose: 10 mg Dicyclomine HCl (Bentyl) 20 mg PO ONETIME ONE Stop: 04/15/18 15:54 Last Admin: 04/15/18 16:04 Dose: 20 mg Sodium Chloride (Normal Saline) 1,000 mls @ 999 mls/hr IV .BOLUS ONE Stop: 04/15/18 18:16 Last Admin: 04/15/18 17:21 Dose: 999 mls/hr Iopamidol (Isovue-300 (61%)) 75 ml IVPUSH ONETIME ONE Stop: 04/15/18 15:55 Last Admin: 04/15/18 16:15 Dose: 75 ml Ondansetron HCl (Zofran) 4 mg IV ONETIME ONE Stop: 04/15/18 15:54 Last Admin: 04/15/18 16:02 Dose: 4 mg Potassium Chloride (Klor-Con 10) 40 meq PO ONETIME ONE Stop: 04/16/18 09:00 Last Admin: 04/16/18 11:26 Dose: 40 meq - Exam General: Reports: Alert, Oriented HEENT: Reports: Pupils Equal, Pupils Reactive, EOMI, Mucous Membr. Moist/[place] Lungs: Reports: Clear to Auscultation, Normal Respiratory Effort Cardiovascular: Reports: Regular Rate, Regular Rhythm GI/Abdominal Exam: Normal Bowel Sounds, Soft, Non-Tender, No Distention Extremities: Normal Inspection, Normal Range of Motion, No Pedal Edema Skin: Reports: Warm, Dry, Intact Neurological: Reports: No New Focal Deficit Psy/Mental Status: Reports: Alert, Normal Affect, Normal Mood
== END 2018-04-17 14:00 | disposition home or self-care (01) ==
LOC: DL.ED 14:20 → UNDOADMIN 18:34 → DL.MS 18:34 → INTOOBSV 19:28
PROVIDERS: ADMIT Internal Medicine; ATTEND Internal Medicine
DX: K56.7 Ileus, unspecified (principal); R19.7 Diarrhea, unspecified; F41.9 Anxiety disorder, unspecified; Z79.899 Other long term (current) drug therapy
CPT/HCPCS: 36415; 74177; 80053; 81001; 82150; 83690; 85025; 85027; 87045; 87046; 87328; 87329; 87493; 87899; 96361; 96374; 99285; A9270; J1650; J2405; J7030; J7120; Q9967; 96372; G0378

== ENCOUNTER 2020-03-02 17:48 | Emergency (ER) | payer BC ==
[2020-03-02] MEDS ORDERED: Phenazopyridine 95 MG Tab PO ONE (17:49)
[2020-03-02] MEDS ORDERED: Ciprofloxacin 500 MG Tab PO ONE (17:49)
[2020-03-02 18:34] VITALS: BP 113/72; PULSE 88
[2020-03-02] MEDS ORDERED: Phenazopyridine 95 MG Tab ONE (19:13)
[2020-03-02] MEDS ORDERED: Ciprofloxacin 500 MG Tab ONE (19:13)
--- NOTE | 2020-03-03 00:45 | EDM.PDOC ---
Scribed by Jacque Paulson 03/02/20 329 for Shellie Duarte PA-C ED HPI GENERAL MEDICAL PROBLEM - General Chief Complaint: Genitourinary Problem Stated Complaint: UTI Time Seen by Provider: 03/02/20 19:00 Source of Information: Reports: Patient, RN, RN Notes Reviewed History Limitations: Reports: No Limitations - History of Present Illness INITIAL COMMENTS - FREE TEXT/NARRATIVE: ED with c/o urinary frequency, burning since . Seemed some better and Wednesday, worse tonight. No flanck pain or fever. no vomiting. Remote hx UTI in past. - Related Data Allergies Allergy/AdvReac Type Severity Reaction Status Date / Time No Known Allergies Allergy Verified 03/02/20 18:34 Home Meds: Home Meds FLUoxetine [PROzac] 20 mg PO DAILY 03/15/13 [History] L.acidoph,Paracasei, B.lactis [Probiotic] 1 tab PO DAILY 03/02/20 [History] Past Medical History HEENT History: Reports: Impaired Vision, Other (See Below) Other HEENT History: wears glasses, strabismus Cardiovascular History: Reports: None Respiratory History: Reports: None Gastrointestinal History: Reports: Other (See Below) Other Gastrointestinal History: belly problems whole life, cant figure out, states has had ulcers Genitourinary History: Reports: None SLAB TRIPPER History: Reports: None Musculoskeletal History: Reports: None Neurological History: Reports: None Psychiatric History: Reports: Anxiety Endocrine/Metabolic History: Reports: None Hematologic History: Reports: Anemia Immunologic History: Reports: None Oncologic (Cancer) History: Reports: None Dermatologic History: Reports: None - Infectious Disease History Infectious Disease History: Reports: Chicken Pox - Past Surgical History Head Surgeries/Procedures: Reports: None HEENT Surgical History: Reports: Eye Surgery GI Surgical History: Reports: Colonoscopy Female Surgical History: Reports: Breast Reduction Neurological Surgical History: Reports: Discectomy, Laminectomy Musculoskeletal Surgical History: Reports: Other (See Below) Other Musculoskeletal Surgeries/Procedures:: disk surguries Social & Family History - Family History Family Medical History: No Pertinent Family History - Caffeine Use Caffeine Use: Reports: Other Other Caffeine Use: Plexus ED ROS GENERAL - Review of Systems Review Of Systems: Comprehensive ROS is negative, except as noted in HPI. ED EXAM, RENAL/ - Physical Exam Exam: See Below Exam Limited By: No Limitations General Appearance: Alert, No Apparent Distress Eye Exam: Bilateral Eye: EOMI Ears: Normal External Exam, Hearing Grossly Normal Throat/Mouth: Normal Voice Head: Atraumatic, Normocephalic Neck: Normal Inspection Respiratory/Chest: No Respiratory Distress, Lungs Clear Cardiovascular: Regular Rate, Rhythm Back Exam: No: CVA Tenderness (L), CVA Tenderness (R) Neurological: Alert, Oriented Skin Exam: Warm, Dry, Intact Course - Vital Signs Last Recorded V/S: Last Vital Signs Temp 97.2 F 03/02/20 18:29 Pulse 88 03/02/20 18:29 Resp 16 03/02/20 18:29 BP 113/72 03/02/20 18:29 Pulse Ox 100 03/02/20 18:29 - Orders/Labs/Meds Orders: Active Orders 24 hr Category Date Time Status CULTURE URINE [RM] Routine Lab 03/02/20 18:20 Received Labs: Laboratory Tests 03/02/20 Range/Units 18:24 Urine Color Yellow (YELLOW) Urine Appearance Slightly cloudy (CLEAR) Urine pH 6.5 (5.0-9.0) Ur Specific [place] 1.025 (1.005-1.030) Urine Protein 30 H (NEGATIVE) Urine Glucose (UA) Negative (NEGATIVE) Urine Ketones Negative (NEGATIVE) Urine Occult Blood Moderate H (NEGATIVE) Urine Nitrite Negative (NEGATIVE) Urine Bilirubin Negative (NEGATIVE) Urine Urobilinogen 0.2 (0.2-1.0) mg/dL Ur Leukocyte Esterase Moderate H (NEGATIVE) Urine RBC 0-5 /HPF Urine WBC Packed H (0-5/HPF) /HPF Ur Epithelial Cells Moderate H (NOT SEEN) /HPF Urine Bacteria Many H (0-FEW/HPF) /HPF Meds: Medications Discontinued Medications Generic Name Dose Route Start Last Admin Trade Name Freq PRN Reason Stop Dose Admin Ciprofloxacin Confirm 03/02/20 19:13 Ciprofloxacin Hcl Administered 03/02/20 19:14 Dose 1,000 mg .ROUTE .STK-MED ONE Phenazopyridine HCl Confirm 03/02/20 19:13 Urinary Pain Relief Administered 03/02/20 19:14 Dose 380 mg .ROUTE .STK-MED ONE Departure - Departure Time of Disposition: 19:30 Disposition: Home, Self-Care 01 Condition: Good Clinical Impression: UTI, Urinary tract infectious disease - Discharge Information *PRESCRIPTION DRUG MONITORING PROGRAM REVIEWED*: No *COPY OF PRESCRIPTION DRUG MONITORING REPORT IN PATIENT MAURY: No Instructions: Urinary Tract Infection, Adult, [id number] Forms: ED Department Discharge Additional Instructions: increase fluids follow up if symptoms worsen, fever/ chills back pain headache vomiting cipro 500mg one twice daily pyridium 200mg every 8 hours available over counter as "uristat" take one to 2 tablets every 8 hours as needed for urinary spasm Sepsis Event Note (ED) - Focused Exam Vital Signs: Vital Signs Temp Pulse Resp BP Pulse Ox 03/02/20 18:29 97.2 F 88 16 113/72 100 I have read and agree with the documentation that has been completed regarding this visit. By signing this record, I attest that the documentation was completed in my physical presence and is an accurate record of the encounter.
== END 2020-03-02 19:26 | disposition home or self-care (01) ==
LOC: DL.ED 17:48
DX: N39.0 Urinary tract infection, site not specified (principal); F41.9 Anxiety disorder, unspecified; Z79.899 Other long term (current) drug therapy
CPT/HCPCS: 81001; 87086; 99283; A9270; 87088; 87186